=== PATIENT | female | born 2000 | race Caucasian/White ===

== ENCOUNTER 2022-11-11 02:20 | Day surgery (SDC) | payer BC, SELFPAY ==
[2022-10-29 14:19] VITALS: BMI 22.6
[2022-11-11 09:28] VITALS: BP 119/88; PULSE 78; RESP 18; TEMP 36.2; O2SAT 100
[2022-11-11] MEDS: LACTATED RINGERS 1,000 ML 150 ML IV CONT (09:38)
--- NOTE | 2022-11-11 10:31 | P.PNAN_ITS ---
Anes - Initial Pre Proc Eval Procedure: Operation Date: 11/11/22 10:15 Proposed Procedures p Colonoscopy - Shyam Ness MD s [facility] Hemorrhoid Treatment - Shyam Ness MD Date/Time: 11/11/22 10:31 Surgeon: Shyam Ness MD Pre Op Diagnosis: melena, hematochezia,hemorrhoids Patient Data Age: 22 Gender: F Height: 1.68 m Weight: 61.9 kg Last Vital Signs Temp 97.1 F L 11/11/22 09:28 Pulse 78 11/11/22 09:28 Resp 18 11/11/22 09:28 BP 119/88 11/11/22 09:28 Pulse Ox 100 11/11/22 09:28 O2 Del Method Room Air 11/11/22 09:28 Allergies Allergy/AdvReac Type Severity Reaction Status Date / Time No Known Allergies Allergy Unverified 11/11/22 09:27 Home Medications Medication Instructions Recorded Confirmed Type hydrocortisone 2.5 % topical cream 1 applic RECTAL BID #30 grams 10/01/22 10/29/22 Rx with perineal applicator Patient hx anesthesia problems: none Family hx anesthesia problems: none Results Review: All pre-operative results and documents have been reviewed as part of the pre- operative evaluation. [facility] Past Medical History Medical History (Updated 10/01/22 @ 15:44 by Wen Crain APRN) Bloating Hematochezia Hemorrhoid Irritable bowel syndrome with constipation Family History Family History Father Hypertension Mother No problems noted. Social History Social History Smoking status: Never smoker Alcohol intake: current Drinks per week: 2 Substance use: never Substance use type: does not use Lack of Transportation: No Lack of Food: Never True Current Housing: I Have Housing Concerned About Future Housing: No Difficulty Paying Gas/Electric Bills: No Difficulty Paying for Meds: No Currently Unemployed: No Education: Master's Degree or Higher Living arrangements: with family Spiritual care concerns: No Anes - Eval Final PreProcedure Day of Procedure 11/11/22 10:31 Patient weight: normal Heart: regular rate and rhythm Lungs: clear to auscultation Airway: Mallampati scale class II Neurological: alert and oriented Last oral intake: >/= 8 hours ASA classification: II Emergent: no Anesthetic plan: proceed Anesthesia type and monitoring: general GIVS and standard monitoring Results Review: All pre-operative results and documents have been reviewed as part of the pre- operative evaluation. Informed Consent: The patient's anesthetic plan and its attendant risks and benefits were discussed with the patient/family/POA. Questions were solicited and answers provided to the satisfaction of the patient/family/POA.
--- NOTE | 2022-11-11 10:33 | PM.HPGS ---
History of Present Illness History of Present Illness Consent: Risks, benefits, and alternatives have been discussed and questions answered. Patient agrees to proceed with procedure. Chief complaint: melena, hematochezia,hemorrhoids Narrative: Litzy Rodgers is a 22 year old female with intermittent rectal bleeding, never had scope Review of Systems Constitutional: Constitutional: Denies headache(s) and Denies weakness Eyes: Eyes: Denies blurry vision ENT: Reports Normal hearing present, Denies headache(s) and Denies neck pain Cardiovascular: Cardiovascular: Denies chest pain and Denies dyspnea Respiratory: Respiratory: Denies dyspnea Gastrointestinal: Gastrointestinal: Reports no additional gastrointestinal complaints Genitourinary: Genitourinary: Denies dysuria Musculoskeletal: Musculoskeletal: Denies neck pain Integumentary/Breasts: Skin/Breast: Denies dry skin Neurologic: Reports Normal hearing present, Denies headache(s) and Denies weakness Psychiatric: Psychiatric: Denies anxiety Endocrine: Endocrine: Denies change in body appearance Hematologic/Lymphatic: Hematologic/Lymphatic: Denies easy bleeding Allergic/Immunologic: Allergic/Immunologic: Denies urticaria PMFSH Past Medical History Medical History (Updated 10/01/22 @ 15:44 by Wen Crain APRN) Bloating Hematochezia Hemorrhoid Irritable bowel syndrome with constipation Family History Family History Father Hypertension Mother No problems noted. Social History Social History Smoking status: Never smoker Alcohol intake: current Drinks per week: 2 Substance use: never Substance use type: does not use Lack of Transportation: No Lack of Food: Never True Current Housing: I Have Housing Concerned About Future Housing: No Difficulty Paying Gas/Electric Bills: No Difficulty Paying for Meds: No Currently Unemployed: No Education: Master's Degree or Higher Living arrangements: with family Spiritual care concerns: No Meds Home Medications and Allergies Home Medications Medication Instructions Recorded Confirmed Type hydrocortisone 2.5 % topical cream 1 applic RECTAL BID #30 grams 10/01/22 10/29/22 Rx with perineal applicator Allergies Allergy/AdvReac Type Severity Reaction Status Date / Time No Known Allergies Allergy Unverified 11/11/22 09:27 Vital Signs Vital Signs - 24 hr 11/11/22 09:28 Temperature 97.1 F L Pulse Rate 78 Respiratory Rate 18 Blood Pressure 119/88 Pulse Oximetry 100 Oxygen Delivery Room Air Exam Const: General: comfortable and no acute distress HENMT: Face/Nose/Sinus: Normal nares present Eyes: General: appearance normal, both eyes and all related structures Neck: Neck: no JVD Resp: Auscultation: clear to auscultation bilaterally Cardio: Rate: regular rate Rhythm: regular rhythm GI: Inspection: non-distended GI Palp: Yes Soft to palpation Skin: General skin exam: normal color Neuro: General: gait normal Speech: normal speech Extrem: General: normal to inspection Psych: Mental Status: mental status grossly normal Assessment and Plan Assessment and plan (1) Hematochezia: Code(s): K92.1 - Melena Status: Acute Assessment and Plan: colonoscopy if find internal hemorrhoids will treat with IRC
[2022-11-11 10:56] VITALS: BP 98/60; PULSE 62; RESP 18; O2SAT 100
--- NOTE | 2022-11-11 10:56 | W.PM.PROC2 ---
Procedure Note - Detailed Date of Procedure 11/11/22 Pre-op Diagnosis hematochezia,hemorrhoids Post-op Diagnosis Same Procedure Performed IRC of internal hemorrhoids Surgeon Shyam Ness MD Anesthesia MAC (also had colonoscopy) Indications as above Description of Procedure found small size internal hemorrhoids using anoscopy, no fissure, no bleeding. Then I introduced IRC probe and hemorrhoids treated at 1.5 sec x5
[2022-11-11 11:06] VITALS: BP 115/66; PULSE 70; RESP 17; O2SAT 100
[2022-11-11 11:16] VITALS: BP 117/74; PULSE 66; RESP 22; O2SAT 100
== END 2022-11-11 11:25 | disposition home or self-care (01) ==
PROVIDERS: PCP Internal Medicine; Visit Provider Internal Medicine Gastroenterology
PROC: 0DJD8ZZ Inspection of Lower Intestinal Tract, Via Natural or Artificial Opening Endoscopic (ICD-10-PCS; CPT 45378; principal; 2022-11-11 10:15)
PROC: (CPT 46930; 2022-11-11 10:15)
DX: K64.8 Other hemorrhoids (principal); K58.1 Irritable bowel syndrome with constipation
CPT/HCPCS: 46930; 45378; J7120

== ENCOUNTER 2023-10-06 06:30 | Inpatient (IN) | payer OTHER, SELFPAY ==
[2023-10-06] VITALS (123 sets, daily range): BP systolic 72–147; BP diastolic 33–91; PULSE 51–169; RESP 18; TEMP 36.6–37.6; O2SAT 74–100; BMI 27.7
--- NOTE | 2023-10-06 07:33 | LDADM ---
This patient, Litzy Rodgers, was admitted to Labor/Delivery/Recovery 107 on 10/06/23 at 06:30. Plans for labor, pain management and were discussed with patient. Patient/family oriented to hospital policies and general routines including ID bracelet, bed and alarms, visiting hours, pain management, procedures, bathroom and other care routines, personal items, smoking policy, room service/diet and guest tray routines, infant security routines, and visiting hours. Patient/Family are encouraged to report perceived risks to care and to ask questions if they do not understand what they are told or what they should do. See OBIX for further documentation.
[2023-10-06 07:51] LABS: Basophils Percent Auto 0.2 % (0.2-1.2); Eosinophils Absolute Auto 0.1 K/mm3 (0-0.3); Eosinophils Percent Auto 1.3 % (0-4.4); Hematocrit 37.7 % (37.0-47.0); Hemoglobin 12.5 g/dL (12.0-15.0); Immature Granulocyte Absolute 0.15 K/mm3 (0.00-0.031); Immature Granulocyte Percent A 1.5 % (0-0.5); Lymphocytes Absolute Auto 2.85 K/mm3 (0.9-3.2); Lymphocytes Percent Auto 28.3 % (18.3-44.2); Mean Corpuscular HGB Conc 33.2 g/dl (32-36); Mean Corpuscular Hemoglobin 31.8 pg (26-34); Mean Corpuscular Volume 95.9 fl (80-100); Mean Platelet Volume 11.4 fl (7.4-10.4); Monocytes Absolute Auto 0.7 K/mm3 (0.1-0.6); Monocytes Percent Auto 6.5 % (2.6-8.5); Neutrophils Absolute Auto 6.3 K/mm3 (1.3-6.7); Neutrophils Percent Auto 62.2 % (45.5-73.1); Platelet Count Result 168 k/mm3 (150-375); Red Blood Count 3.93 M/mm3 (4.2-5.4); Red Cell Distribution Width 12.2 % (11.5-14.5); White Blood Count 10.1 K/mm3 (4.5-10.0)
[2023-10-06] MEDS: AMPICILLIN 2 GM/NS 100 ML 2 GM/100 ML BAG IVPB (08:12)
[2023-10-06] MEDS: LACTATED RINGERS 1,000 ML 125 ML IV CONT ×4 (08:12→14:28)
[2023-10-06] MEDS: OXYTOCIN 30 UNITS/NS 500 ML 30 UNITS/500 ML BAG 6 UNITS IV CONT (08:13)
--- NOTE | 2023-10-06 08:47 | PM.IMHP ---
H&P: HPI History of Present Illness Date/Time: 10/06/23 08:47 Chief Complaint: Here for induction of labor. Narrative: 23 y/o G1 at 40 weeks gestation here for scheduled induction of labor. No contractions. GBS pos. uncomplicated. Review of Systems Review of Systems: All systems reviewed & are unremarkable except as noted in HPI and below PMFSH Past Medical History Medical History Bloating Hematochezia Hemorrhoid Irritable bowel syndrome with constipation Family History Family History Father Hypertension Mother No problems noted. Social History Social History Smoking status: Never smoker Alcohol intake: current Drinks per week: 2 Substance use: never Substance use type: does not use Do You Feel Safe in your Home?: Yes Lack of Transportation: No Lack of Food: Never True Current Housing: I Have Housing Concerned About Future Housing: No Difficulty Paying Gas/Electric Bills: No Difficulty Paying for Meds: No Currently Unemployed: No Education: Master's Degree or Higher Difficulty w/ Childcare or Family Care: No Living arrangements: with family Spiritual care concerns: No Meds Home Medications and Allergies Home Medications Medication Instructions Recorded Confirmed Type prenat.vits,chandrika,chc-ughp-lnkbd tablet 09/07/23 History Allergies Allergy/AdvReac Type Severity Reaction Status Date / Time Latex, Natural Rubber Allergy Rash Verified 09/07/23 15:51 Vital Signs Vital Signs - 24 hr 10/06/23 07:30 10/06/23 07:31 10/06/23 07:45 Pulse Rate 90 92 95 Blood Pressure 100/58 L 91/55 L 100/54 L Oxygen Delivery 10/06/23 08:00 10/06/23 08:15 10/06/23 08:30 Pulse Rate 89 96 88 Blood Pressure 104/62 99/55 L 106/65 Oxygen Delivery 10/06/23 08:46 10/06/23 07:33 Pulse Rate 83 Blood Pressure 99/56 L Oxygen Delivery Room Air Exam Const: Orientation/consciousness: patient oriented x3 Other: Well-developed, well-nourished female in no acute distress. Neck: Thyroid: thyroid normal Lymphatic: no lymphadenopathy noted (in neck, axilla or inguinal nodes) Resp: Effort & Inspection: normal respiratory effort Auscultation: clear to auscultation bilaterally Cardio: Rate: regular rate Rhythm: regular rhythm Heart sounds: S1 normal heart sound present and S2 normal heart sound present GI: Other: ABD: Soft, nontender, nondistended, gravid. NST reactive. TOCO: no contractions yet. No guarding or rebound tenderness. No hepatosplenomegaly. : General: Yes no CVA tenderness Other: Cervix 2-3/80/-2. AROM with clear fluid. Vertex. Back/Spine/Pelvis: Back: no CVA tenderness Skin: General skin exam: normal color and no rashes or lesions noted Neuro: General: patient oriented x3 Extrem: Other: Extremities: nontender with no edema Psych: Mental Status: mental status grossly normal Affect: normal affect H&P: Results Labs Labs: Short CBC 10/06/23 Range/Units 07:18 WBC 10.1 H (4.5-10.0) K/mm3 Hgb 12.5 (12.0-15.0) g/dL Hct 37.7 (37.0-47.0) % Plt Count 168 (150-375) k/mm3 Assessment and Plan Assessment and plan (1) Term : Code(s): Z34.90 - Encounter for supervision of normal , unspecified, unspecified trimester Status: Acute Assessment and Plan: A: IUP at term with favorable cervix, desiring induction of labor. GBS pos. P: Ampicillin, oxytocin. Anticipate . (2) GBS (group B Streptococcus carrier), +RV culture, currently : Code(s): O99.820 - Streptococcus B carrier state complicating Status: Acute
[2023-10-06] MEDS: AMPICILLIN 1 GM/NS 50 ML 1 GM/50 ML BAG IVPB (12:10)
[2023-10-06] MEDS: PHENYLEPHRINE 1,000 MCG/10 ML SYRINGE 1000 MCG (12:30)
--- NOTE | 2023-10-06 12:31 | PM.OBPNLAB ---
Pain Control Date/time seen: 10/06/23 12:31 Comments: Comfortable with epidural. Pelvic Exam Dilation (cm): 4 Effacement (%): 90 station: -1 Comments: IUPC placed Contractions Contraction pattern: Irregular Status status: Category l Assessment and Plan Pitocin rate (mU/min): 12 Comments: Continue labor.
--- NOTE | 2023-10-06 13:22 | WPDANESEPPF ---
Anes - Initial Pre Proc Eval Date/Time: 10/06/23 13:22 Surgeon: Alcides Dee MD Pre Op Diagnosis: IOL Patient Data Age: 23 Gender: F Height: 1.68 m Weight: 78 kg Last Vital Signs Temp 36.8 C 10/06/23 08:00 Pulse 75 10/06/23 13:20 BP 89/50 L 10/06/23 13:20 Pulse Ox 100 10/06/23 13:18 O2 Del Method Room Air 10/06/23 07:33 Allergies Allergy/AdvReac Type Severity Reaction Status Date / Time Latex, Natural Rubber Allergy Rash Verified 09/07/23 15:51 Home Medications Medication Instructions Recorded Confirmed Type prenat.vits,chandrika,sca-rtqq-bdoix tablet 09/07/23 History Laboratory Tests 10/06/23 07:18 WBC 10.1 H K/mm3 (4.5-10.0) RBC 3.93 L M/mm3 (4.2-5.4) Hgb 12.5 g/dL (12.0-15.0) Hct 37.7 % (37.0-47.0) MCV 95.9 fl (80-100) MCH 31.8 pg (26-34) MCHC 33.2 g/dl (32-36) RDW 12.2 % (11.5-14.5) Plt Count 168 k/mm3 (150-375) MPV 11.4 H fl (7.4-10.4) Immature Gran % (Auto) 1.5 H % (0-0.5) Neut % (Auto) 62.2 % (45.5-73.1) Lymph % (Auto) 28.3 % (18.3-44.2) [place] % (Auto) 6.5 % (2.6-8.5) Eos % (Auto) 1.3 % (0-4.4) Baso % (Auto) 0.2 % (0.2-1.2) Lymph # (Auto) 2.85 K/mm3 (0.9-3.2) [place] # (Auto) 0.7 H K/mm3 (0.1-0.6) Eos # (Auto) 0.1 K/mm3 (0-0.3) Baso # (Auto) 0.0 K/mm3 (0.0-0.1) Abs Immat Gran (auto) 0.15 H K/mm3 (0.00-0.031) Absolute Neuts (auto) 6.3 K/mm3 (1.3-6.7) Absolute Nucleated RBC 0.000 K/mm3 (0.0-0.012) Nucleated RBC % 0.0 % (0.0-0.2) RPR Pending Blood Type AB Positive Antibody Screen Negative Patient hx anesthesia problems: none Family hx anesthesia problems: none Results Review: All pre-operative results and documents have been reviewed as part of the pre-operative evaluation. [facility] Past Medical History Medical History Bloating Hematochezia Hemorrhoid Irritable bowel syndrome with constipation Family History Family History Father Hypertension Mother No problems noted. Social History Social History Smoking status: Never smoker Alcohol intake: current Drinks per week: 2 Substance use: never Substance use type: does not use Do You Feel Safe in your Home?: Yes Lack of Transportation: No Lack of Food: Never True Current Housing: I Have Housing Concerned About Future Housing: No Difficulty Paying Gas/Electric Bills: No Difficulty Paying for Meds: No Currently Unemployed: No Education: Master's Degree or Higher Difficulty w/ Childcare or Family Care: No Living arrangements: with family Spiritual care concerns: No Anes - Eval Final PreProcedure Day of Procedure 10/06/23 13:22 Patient weight: overweight Heart: regular rate and rhythm Lungs: clear to auscultation Neurological: alert and oriented ASA classification: II Emergent: no Anesthetic plan: proceed Anesthesia type and monitoring: regional epidural and standard monitoring Results Review: All pre-operative results and documents have been reviewed as part of the pre-operative evaluation. Informed Consent: The patient's anesthetic plan and its attendant risks and benefits were discussed with the patient/family/POA. Questions were solicited and answers provided to the satisfaction of the patient/family/POA.
[2023-10-06 15:30] LABS: Rapid Plasma Reagin Non-Reactive (NonReactive)
--- NOTE | 2023-10-06 16:59 | PM.OBPNLAB ---
Pain Control Date/time seen: 10/06/23 16:59 Comments: Pushing. Pelvic Exam Dilation (cm): 10 Effacement (%): 100 station: +2 Contractions Contraction frequency: 3 Contraction pattern: Regular Status status: Category l Assessment and Plan Comments: Continue pushing. Anticipate .
--- NOTE | 2023-10-06 17:47 | PM.OBPRVD ---
OB - Vaginal Delivery Note Procedure Delivery date: 10/06/23 Events: Positive Group B Strep (GBS) Induction method: Per Pitocin Protocol Delivery augmentation: Rupture of Membranes and Pitocin Delivery monitor: External FHT, External Uterine and Internal Uterine Route of delivery: Episiotomy description: None Laceration Description: Perineal - 2nd Degree and Labial (bilateral) Delivery repair: vicryl (3-0) Specimen: Yes (cord blood) Quantitative Blood Loss (ml): 180 Anesthesia type: Epidural Disposition: PACU Complications: None Narrative: 23 y/o G1 at 40 weeks gestation who presented to the hospital for induction of labor. Oxytocin was administered intravenously. She was given ampicillin for GBS colonization. Amniotomy was performed with return of clear fluid. She received an epidural for pain control. Her labor progressed and her cervix dilated completely. She pushed with good effort and delivered the 's head to the perineum, followed by the body. The nose and mouth were bulb suctioned. After a delay, the cord was clamped and cut. The infant was handed off the field. Cord blood was collected. The placenta delivered spontaneously and was grossly normal in appearance. The usual 3 vessel cord was noted. A second degree midline perineal laceration was sustained. This was reapproximated using 3 0 Vicryl in the usual layered fashion. Bilateral labial lacerations were reapproximated using 3 0 Vicryl in interrupted figure of eight fashion. Excellent hemostasis resulted as did excellent reapproximation of the normal anatomy. Needle and instrument counts were correct. The patient was taken to recovery room in stable condition. The went to the nursery in stable condition. I was present and scrubbed for the entire delivery. Baby Date of : 10/06/23 Time of : 17:17 Weeks of gestation at delivery: 40 Infant gender: Male Weight (pounds): 8 Weight (ounces): 1 presentation: vertex position: Left Occiput Anterior Placenta delivery description: Spontaneous and Normal Configuration Cord Vessel Description: 3 Vessels and Delayed Cord Clamping score five minutes: 8
--- NOTE | 2023-10-06 17:50 | P.DS_ITS ---
DS: Admitting Diagnosis Discharge Date 10/08/23 Admitting Diagnosis IUP at 40 weeks GBS pos DS: Discharge Diagnosis Discharge Diagnosis (1) (normal spontaneous vaginal delivery): Code(s): O80 - Encounter for full-term uncomplicated delivery Status: Acute (2) GBS (group B Streptococcus carrier), +RV culture, currently : Code(s): O99.820 - Streptococcus B carrier state complicating Status: Acute OB - DS: Summary OB Procedures : None OB Procedures Intrapartum: Spontaneous Vag Delivery and GBS prophylaxis OB Procedures: : None Peripartum Data Laceration Description: Perineal - 2nd Degree and Labial (bilateral) Episiotomy description: None Time Spent with Patient Time attestation: Total time spent providing and/or coordinating discharge services: DS: Data Data Completed and Pending Labs on day of discharge: Labs from last 24 hours 10/06/23 07:18 WBC 10.1 H RBC 3.93 L Hgb 12.5 Hct 37.7 MCV 95.9 MCH 31.8 MCHC 33.2 RDW 12.2 Plt Count 168 MPV 11.4 H Immature Gran % (Auto) 1.5 H Neut % (Auto) 62.2 Lymph % (Auto) 28.3 [place] % (Auto) 6.5 Eos % (Auto) 1.3 Baso % (Auto) 0.2 Lymph # (Auto) 2.85 [place] # (Auto) 0.7 H Eos # (Auto) 0.1 Baso # (Auto) 0.0 Abs Immat Gran (auto) 0.15 H Absolute Neuts (auto) 6.3 Absolute Nucleated RBC 0.000 Nucleated RBC % 0.0 RPR Non-reactive Blood Type AB Positive Antibody Screen Negative Discharge Plan Discharge Attending physician on discharge: Alcides Dee Discharging Clinician: Alcides Dee Patient Disposition: Home, Self-Care Activity: pelvic rest Diet: regular Discharge Instructions: Call or return if temperature above 100.4? F, increased abdominal pain, increased vaginal bleeding or any new problems. Stand Alone Forms: General Discharge Information Follow-up/Referrals: Alcides Dee MD [Physician] - 6 Weeks Discharge Medications: New ibuprofen 600 mg tablet 600 mg PO Q6H PRN (Reason: cramps) Qty: 30 0RF Continued #2 Tablet Date of admission: 10/06/23 06:30 Primary Care Provider: Luis Eduardo,Carrillo Monae Admitting Provider: Alcides Dee Attending physician on admission: Alcides Dee Condition: Stable
[2023-10-06] MEDS: OXYTOCIN 30 UNITS/NS 500 ML 30 UNITS/500 ML BAG 125 UNITS IV CONT (18:03)
[2023-10-06] MEDS: ACETAMINOPHEN 325 MG TABLET 650 MG PO (21:00)
--- NOTE | 2023-10-06 21:00 | PC.NURSE ---
Initiated pumping with patient at this time due to separation from in level 2 nursery. Discussed with patient importance of pumping when from baby to increase chances of forming milk supply. Encouraged patient to pump every 2-3 hours for 15 min session and that she may get little/no output but to continue and try to be consistent. Educated patient on cleaning of pump parts, milk storage, supply/demand, etc. Patient stated her goal is to do a combo of breast/bottle feeding and supplementing with formula depending on her milk supply.
--- NOTE | 2023-10-06 21:27 | OBPPTRN ---
Addendum entered by Radha Zapata RN 10/06/23 21:35: Patient to floor at 203 Original Note: Patient transferred to post room #291 via wheelchair. Support person- spouse Yonas present. Oriented to unit, room, information board, rooming in, admission packet and security measures. 1st floor nursery phone # given for patient to call for updates on baby as desired. Patient verbalizes understanding.
--- NOTE | 2023-10-07 02:10 | PC.NURSE ---
Transported patient down to 1st floor nursery at this time to visit/nurse baby.
[2023-10-07 03:20] VITALS: BP 100/62; PULSE 80; RESP 18; TEMP 37; O2SAT 99
[2023-10-07 05:05] LABS: Hemoglobin 10.8 g/dL (12.0-15.0)
[2023-10-07] MEDS: DOCUSATE SODIUM 100 MG CAPSULE PO (07:47)
[2023-10-07] MEDS: IBUPROFEN 600 MG TABLET PO (07:48)
[2023-10-07 08:16] VITALS: PULSE 83; RESP 20; TEMP 36.6; O2SAT 99
[2023-10-07] MEDS: ACETAMINOPHEN 325 MG TABLET 650 MG PO (09:46)
[2023-10-07] MEDS: MULTIVIT/MIN/PREN/FOL AC/IRON TABLET 1 TAB PO (09:46)
--- NOTE | 2023-10-07 11:20 | WPDANLDPN2 ---
Anes-Prog Note L&D Date/Time: 10/07/23 11:20 Comfortable throughout: labor and delivery Neuraxial method: epidural Epidural/Spinal procedure site: clean & non-tender Neuro status: Neuro function grossly intact. Cardiovascular status: normal Respiratory status: normal Airway patency: baseline Mental status: baseline Post-Op hydration status: normal Vital Signs: Last Vital Signs Temp 36.6 C 10/07/23 08:16 Pulse 83 10/07/23 08:16 Resp 20 10/07/23 08:16 BP 100/62 10/07/23 03:20 Pulse Ox 99 10/07/23 08:16 O2 Del Method Room Air 10/06/23 07:33 Pain score (VAS): 10 I/O: Intake & Output 10/06/23 10/07/23 10/07/23 23:59 07:59 15:59 Intake Total 500 Output Total 180 Balance 320 Post-procedural complaints: none Patient feedback: Patient satisfied with anesthetic care.
--- NOTE | 2023-10-07 12:48 | PM.OBPNVD ---
OB - PN: Subj Subjective Date/time seen: 10/07/23 12:48 Narrative: Pain OK. Would like circumcision for son. OB - PN: Obj Data Labs 10/07/23 03:33 Labs: Laboratory Results - last 24 hr 10/06/23 10/07/23 07:18 03:33 Hgb 10.8 L Hct 32.0 L RPR Non-reactive OB - PN A/P Plan day: 1 Comments: A: PPD#1, doing well. P: Routine care. Reviewed circ. Exam Psych: Other: AVSS ABD soft, nontender, fundus firm EXT nontender
--- NOTE | 2023-10-07 13:29 | PC.NURSE ---
[id number] Introductions were made, then consulted with patient to assess needs related to . Mother led the conversation with her?plans to feed?her infant, the?experience so far, and possibly formula feed if doesn't work. We reviewed the risks and benefits of the feeding options and choices. Encouraged understanding of the benefits of skin to skin (demonstrating unwrapping infant and placing upright on her chest), stimulating with massage touch, changing positions to encourage wakefulness, how to watch for early feeding cues, responsive feeding, feeding on demand (aiming for 8-12 times in 24 hours, about every 2-3 hours), milk production, hand expression (multiple large drops expressed from both of mothers breast), building/maintaining a milk supply, duration of feeding, signs of adequate intake/output and how to record on the feeding sheet. Mother works well with her infant with encouragement and education. Reviewed positioning and ear, shoulder, hip alignment, supporting the breast to facilitate a deep latch, asymmetrical latch (off-center), leading with the chin with a big, open, wide gape and body close to mother. latched optimally to the left breast in cross cradle position. Education given to the mother of how to visualize the suckling (with good rocking jaw motion), swallows (dropping of the lower jaw) and how to listen for drinking at the breast (the ka sound) and infant demonstrated well. Infant was able to maintain latch without pain to mother protecting the nipple with optimal positioning and latching. Mother voiced understanding of skin to skin, stimulating with massage touch, responsive feedings, hand expressed colostrum, talking to infant to encourage if it has been 2 -2.5 hours since the start of the last , to call if does not latch, or if there is discomfort with . We discussed there's no medical reason to supplement at this time. Resources used for education were facilitated with the visual educational handouts/ tool/mom and baby guide. Inpatient/outpatient resources provided with feeding sheet, name written on the communication board, and the mom/baby guide. Parents voiced understanding of information, demonstrated learning and will call if there is a request for assistance. Reported to the Primary RN.
[2023-10-07 19:36] VITALS: BP 107/75; PULSE 73; RESP 18; TEMP 36.3; O2SAT 100
[2023-10-08] MEDS: ACETAMINOPHEN 325 MG TABLET 650 MG PO (00:53)
[2023-10-08] MEDS: IBUPROFEN 600 MG TABLET PO (01:42)
[2023-10-08 08:25] VITALS: BP 111/66; PULSE 81; RESP 16; TEMP 37.2; O2SAT 100
--- NOTE | 2023-10-08 09:15 | PM.OBPNVD ---
OB - PN: Subj Subjective Date/time seen: 10/08/23 09:15 Narrative: Pain OK. Would like to go home. OB - PN: Obj Data Labs 10/07/23 03:33 OB - PN A/P Plan Comments: A: PPD#2, doing well. P: Home to f/u 6 weeks. Exam Psych: Other: AVSS ABD soft, nontender, fundus firm EXT nontender
[2023-10-08] MEDS: MULTIVIT/MIN/PREN/FOL AC/IRON TABLET 1 TAB PO (10:18)
[2023-10-08] MEDS: POLYSACCHARIDE IRON COMPLEX 150 MG CAPSULE PO (10:18)
[2023-10-08] MEDS: DOCUSATE SODIUM 100 MG CAPSULE PO (10:18)
--- NOTE | 2023-10-08 12:15 | PC.NURSE ---
[id number] Consulted with patient to assess needs related to . Discussed with mother her successes, concerns and any questions she has. We reviewed working with the , supporting breast, protecting her nipples with an optimal deep latch, good positioning, alignment and good hand washing. Encouraged understanding the benefits of skin to skin, responding to feeding cues, frequencies of feeding 8-12 times in 24 hours (approximately 2-3 hours), duration of feedings, milk production, intake/output feeding sheet and signs of adequate intake encouraging swallowing at the breast. Reviewed supporting breast with a sandwich hold, tucking infants buttocks under the opposite breast bringing infant in close to her body with an off-centered (asymmetrical latch) and leading with the chin with big, open, wide gape. latched optimally to the right, then left breast in cross cradle position. Education given to the mother of how to visualize the suckling (with good rocking jaw motion) swallows (dropping of the lower jaw) and how to listen for drinking at the breast (the ka sound) which demonstrates with a deep latch. The infant was able to maintain latch without discomfort to mother or misshaping. Nipple care reviewed with optimal latch, good positioning and using clean hands when touching her breast. Resources used to facilitate learning were used from the visual handouts/ tool/feeding sheet/mom and baby guide. Mother voiced understanding of the education shared, to call for assistance if the infant does not latch or if there is discomfort with . Infant refused to take bottle supplement and burped twice after a [address] Hernandez consulted and is not to be forced to drink the bottle if infant refuses after . Reviewed with mother the signs of an effective latch vs a ineffective latch. Mother voiced understanding and will call for the next . Reported to the Primary RN. [id number] Mother is demonstrating she is able to independently latch with appropriate positioning, alignment off centered with chin buried into the breast and nose near with rocking jaw motion and dropping of the jaw for swallowing. She denies any nipple discomfort and is responsively . Infant is currently meeting outcomes for weight, output, jaundice, blood sugar and feeding frequencies of 8-12 times in 24 hours. stopped swallowing and infant was latched to the left breast using cross cradle, off-centered latching with big, wide open mouth for a deep latch. Swallowing was visualized and heard. Mother is feeding appropriately for growth of , understands stimulating to effectively breastfeed, supplementing if needed, then pumping to protect the milk, returning to practicing for a good milk supply. has had appropriate feedings in the last 24 hours meets the outcomes for weight, output, blood sugar and jaundice at this time. Reinforced understanding of milk production, transition of milk, signs of adequate intake, transition of stool, prevention/relief of engorgement, plugged ducts, mastitis, responsive watching for feeding cues, the different methods of stimulating to breastfeed 1-3 hours after the start of the last feeding, community resources, and when to call a provider using the resource of the feeding sheet along with the mom and baby guide. Parents will come to [place] tomorrow for a follow-up appt and they voiced understanding they can call for concerns or questions. Mother voiced understanding of the information shared, is confident to continue effectively her infant at home, when to call for assistance, denies any additional assistance or education at this time. Reported to the Primary RN.
[2023-10-09 11:31] VITALS: BP 105/62; PULSE 90; RESP 18; TEMP 36.6; O2SAT 98
== END 2023-10-08 12:33 | disposition home or self-care (01) | DRG 807 ==
LOC: ANHLDR 17:52 → ANHOB2 20:39
PROVIDERS: Admitting Provider Obstetrics & Gynecology; PCP Internal Medicine; Visit Provider Obstetrics & Gynecology
DX: O99.824 Streptococcus B carrier state complicating childbirth (principal); Z37.0 Single live birth; Z3A.40 40 weeks gestation of pregnancy; O70.1 Second degree perineal laceration during delivery
CPT/HCPCS: 36415; 85014; 85018; 85025; 86592; 86850; 86900; 86901; A9270; J0290; J2371; J2590; J2795; J7120